=== PATIENT | female | born 1960 | race Caucasian/White ===

== ENCOUNTER → 2018-02-24 | Outpatient (CLI) | payer OTHER ==
[~2018-02-24] MED LIST: ASPIRIN EC81 M1; FOLIC ACID; PREVACID; VITAMIN D2400 UNIT
== END ==
LOC: M.RAD 09:10
DX: Z12.31 Encounter for screening mammogram for malignant neoplasm of breast (principal)

== ENCOUNTER 2018-12-04 20:33 | Emergency (ER) | payer OTHER ==
[~2018-12-04] VITALS: Ht 162.6 cm; Wt 95.3 kg
[2018-12-04 21:14] LABS: ABSOLUTE EOSINOPHILS 0.1 thou/uL (0.0-0.7); ABSOLUTE LYMPHOCYTES 1.8 thou/uL (0.8-5.3); ABSOLUTE MONOCYTES 0.7 thou/uL (0.0-1.2); ABSOLUTE NEUTROPHILS 4.4 thou/uL (1.6-8.1); BASOPHILS 0.5 %; HEMATOCRIT 41.7 % (37.0-47.0); LYMPHOCYTES 25.3 %; MCH 30.2 pg (26.0-34.0); MCHC 33.6 g/dL (28.0-37.0); MCV 89.9 fL (80.0-100.0); MONOCYTES 9.3 %; MPV 9.3 fl. (7.2-11.1); NUCLEATED RBCS 0 /100WBC; PLATELET COUNT* 201 thou/uL (150-400); POLYS 62.9 %; RBC 4.64 mil/uL (4.20-5.00); RDW-CV 12.7 % (10.5-14.5); WBC 7.1 thou/uL (4.0-11.0)
[2018-12-04 21:22] LABS: PROTIME 10.3 Seconds (9.20-11.50)
[2018-12-04 21:23] LABS: ANION GAP 11 mmol/L (7-16); BUN 17 mg/dL (7-18); CALCIUM 9.5 mg/dL (8.5-10.1); CHLORIDE 105 mmol/L (98-107); CO2 27 mmol/L (21-32); CREATININE 1.1 mg/dL (0.6-1.3); GLUCOSE 146 mg/dL (70-99); POTASSIUM 4.2 mmol/L (3.5-5.1); SODIUM 143 mmol/L (136-145)
[2018-12-04 21:33] LABS: ALKALINE PHOSPHATASE 72 U/L (46-116); SGOT 17 U/L (15-37); SGPT 35 U/L (30-65); TOTAL BILIRUBIN 0.3 mg/dL (<0.1-1.0); TOTAL PROTEIN 7.4 g/dL (6.4-8.2); TROPONIN-I LEVEL <0.06 ng/mL (<0.06)
[2018-12-05 00:18] LABS: URINE BILIRUBIN NEGATIVE (Negative); URINE BLOOD NEGATIVE (Negative); URINE CLARITY CLEAR; URINE COLOR YELLOW; URINE GLUCOSE-RANDOM NEGATIVE (Negative); URINE KETONES NEGATIVE (Negative); URINE LEUKOCYTES-REFLEX NEGATIVE (Negative); URINE NITRITE-REFLEX NEGATIVE (Negative); URINE PROTEIN NEGATIVE (Negative); URINE SPECIFIC GRAVITY 1.015 (1.005-1.030); URINE UROBILINOGEN 0.2 E.U./dl (0.2-1.0)
[2018-12-05] MEDS ORDERED: FLEXERIL PO (01:02)
[2018-12-05] MEDS ORDERED: NORCO 7.5-3251 EACH PO (01:02)
[2018-12-05 01:20] VITALS: BP 150/70
--- NOTE | 2018-12-05 10:41 | EKG ---
[place] [address] ELECTROCARDIOGRAM REPORT Name: LUIS WEINSTEIN Room: [facility]#: [id number] Admission: 12/04/18 Attend Phys: Discharge: 12/05/18 Date of : 56 Report #: [id number] THIS REPORT FOR: //name// [facility] ED Test Date: 2018-12-04 Test Time: 21:20:22 Pat Name: LUIS WEINSTEIN Department: Room: Gender: F Pathology Technologist: [place] : 1960 Requested By: Malissa Zamudio Order Number: [id number] MD: Abdulaziz Angeles Measurements Intervals [place] Rate: 88 P: 63 [place]: 180 QRS: 3 QRSD: 94 T: 35 QT: 351 QTc: 425 Interpretive Statements Sinus rhythm LAE, consider biatrial enlargement RSR' in V1 or V2, probably normal variant Compared to ECG 06/30/2006 10:01:28 RSR' in V1 or V2 now present Sinus bradycardia no longer present Electronically Signed On 12-05-2018 10:40:55 CDT by Abdulaziz Angeles [email or web address] <ELECTRONICALLY SIGNED> By: Abdulaziz Angeles MD, [facility] 12/05/18 1040 19 19 Abdulaziz Angeles MD, [facility] /EPI
== END 2018-12-05 01:20 | disposition home or self-care (01) ==
LOC: M.ERS 20:33
PROVIDERS: Emergency Medicine
DX: S22.42XA Multiple fractures of ribs, left side, initial encounter for closed fracture (principal); S50.02XA Contusion of left elbow, initial encounter; S00.03XA Contusion of scalp, initial encounter; S80.212A Abrasion, left knee, initial encounter; M25.552 Pain in left hip; M54.6 Pain in thoracic spine; K21.9 Gastro-esophageal reflux disease without esophagitis; Z90.710 Acquired absence of both cervix and uterus; Z90.49 Acquired absence of other specified parts of digestive tract; V86.99XA Unspecified occupant of other special all-terrain or other off-road motor vehicle injured in nontraffic accident, initial encounter; Y92.59 Other trade areas as the place of occurrence of the external cause; Y93.89 Activity, other specified; Y99.8 Other external cause status

== ENCOUNTER → 2019-02-10 | Outpatient (CLI) | payer OTHER ==
[~2019-02-10] MED LIST changes: +FLEXERIL PO; +NORCO 7.5-3251 EACH PO
== END ==
LOC: M.RAD 09:07
DX: Z12.31 Encounter for screening mammogram for malignant neoplasm of breast (principal)

== ENCOUNTER → 2020-02-25 | Outpatient (CLI) | payer OTHER | LOC: M.RAD 10:17 | PROVIDERS: ATTEND Family Medicine | DX: Z12.31 Encounter for screening mammogram for malignant neoplasm of breast (principal) ==

== ENCOUNTER → 2021-02-10 | Outpatient (CLI) | payer OTHER | LOC: M.ULTRA 10:00 | PROVIDERS: ATTEND Physician Assistant | DX: R10.2 Pelvic and perineal pain (principal); Z90.710 Acquired absence of both cervix and uterus ==

== ENCOUNTER → 2021-02-27 | Outpatient (CLI) | payer OTHER | LOC: M.RAD 11:18 | PROVIDERS: ATTEND Family Medicine | DX: Z12.31 Encounter for screening mammogram for malignant neoplasm of breast (principal) ==

== ENCOUNTER → 2021-03-09 | Outpatient (CLI) | payer OTHER | LOC: M.RAD 10:00 | PROVIDERS: ATTEND Family Medicine | DX: M85.88 Other specified disorders of bone density and structure, other site (principal); M19.90 Unspecified osteoarthritis, unspecified site ==